=== PATIENT | female | born 1980 | race Caucasian/White ===

== ENCOUNTER 2018-03-10 12:53 | Emergency (ER) | payer OTHER ==
[~2018-03-10] VITALS: Ht 167.6 cm; Wt 63.5 kg
[2018-03-10] MEDS ORDERED: NORCO 5-325 TA1 EACH PO (15:41)
[2018-03-10] MEDS ORDERED: IBUPROFEN 800800 M1 PO (15:41)
[2018-03-10 16:19] VITALS: BP 130/80
== END 2018-03-10 16:20 | disposition home or self-care (01) ==
LOC: M.ERS 12:53
DX: S92.101A Unspecified fracture of right talus, initial encounter for closed fracture (principal); J45.909 Unspecified asthma, uncomplicated; Z88.0 Allergy status to penicillin; W10.9XXA Fall (on) (from) unspecified stairs and steps, initial encounter; Y93.89 Activity, other specified; Y92.89 Other specified places as the place of occurrence of the external cause; Y99.8 Other external cause status